=== PATIENT | female | born 1995 | race African-American/Black ===

== ENCOUNTER → 2021-03-21 16:07 | Outpatient (BNVA) | payer OTHER, SELFPAY | PROVIDERS: PCP Nurse Practitioner; Visit Provider Physician Assistant Surgical ==

== ENCOUNTER → 2021-04-23 08:14 | Outpatient (BNVA) | payer OTHER, SELFPAY | PROVIDERS: PCP Nurse Practitioner; Visit Provider Surgery ==

== ENCOUNTER → 2021-05-15 16:30 | Outpatient (BNVA) | payer OTHER, SELFPAY | PROVIDERS: PCP Nurse Practitioner; Visit Provider Counselor Mental Health | DX: F50.81 Binge eating disorder (principal); F32.A Depression, unspecified | CPT/HCPCS: 90791 ==

== ENCOUNTER 2021-05-26 12:53 | Outpatient (REF) | payer OTHER, SELFPAY ==
[2021-05-28 11:28] LABS: H Pylori Breath Test Negative (Negative)
== END 2021-05-26 12:54 | disposition home or self-care (01) ==
LOC: CF 12:53
PROVIDERS: PCP Nurse Practitioner; Visit Provider Surgery
DX: Z11.0 Encounter for screening for intestinal infectious diseases (principal)
CPT/HCPCS: 36415; 83013; 99211